=== PATIENT | male | born 1955 | race Caucasian/White ===

== ENCOUNTER → 2023-05-31 09:31 | Outpatient (REF) | payer MEDICARE, OTHER, SELFPAY | LOC: MRI 3T 09:31 | PROVIDERS: ATTENDING PHYSICIAN Specialist; FAMILY PHYSICIAN Family Medicine | DX: N13.9 Obstructive and reflux uropathy, unspecified (principal) | CPT/HCPCS: 72197; A9575 ==

== ENCOUNTER → 2023-07-06 10:32 | Outpatient (REF) | payer MEDICARE, OTHER, SELFPAY | LOC: RAD 10:32 | PROVIDERS: ATTENDING PHYSICIAN Specialist; FAMILY PHYSICIAN Family Medicine | DX: I10 Essential (primary) hypertension (principal) | CPT/HCPCS: 76770 ==